=== PATIENT | male | born 1985 | race Caucasian/White ===

== ENCOUNTER 2018-12-24 13:18 | Emergency (ER) | payer OTHER ==
[~2018-12-24] VITALS: Ht 188 cm; Wt 81.7 kg
[2018-12-24] MEDS ORDERED: CORTIZONE-10 PL28 GM TOP (14:16)
[2018-12-24] MEDS ORDERED: HYDROXYZINE HCL25 M1 PO (14:16)
[2018-12-24 14:25] VITALS: BP 132/88
== END 2018-12-24 14:25 | disposition home or self-care (01) ==
LOC: M.ERS 13:18
DX: L21.0 Seborrhea capitis (principal); F17.200 Nicotine dependence, unspecified, uncomplicated